=== PATIENT | female | born 1960 | race Caucasian/White ===

== ENCOUNTER 2023-06-20 17:12 | Inpatient (IN) | payer BC, SELFPAY ==
[2023-06-20] VITALS (18 sets, daily range): BP systolic 110–182; BP diastolic 54–76; PULSE 79–101; RESP 17–30; TEMP 36.6–37.1; O2SAT 95–99; BMI 26.6; BMI 58.7
--- NOTE | 2023-06-20 17:34 | ECG_ITS ---
[facility] Test Date: 2023-06-20 Pat Name: KAYLA HERRING Department: Room: - Gender: Female C Java Developer: : [id number] Requested By: Order Number: [id number] Reading MD: PAOLO MAURICE Measurements Intervals [place] Rate: 87 P: 70 NV: 194 QRS: 74 QRSD: 86 T: 66 QT: 360 QTc: 405 Interpretive Statements 1100 Sinus rhythm 9110 normal ECG No previous ECG available for comparison Electronically Signed On 06-21-2023 7:02:24 EDT by PAOLO MAURICE
--- NOTE | 2023-06-20 17:43 | PC.NURSE ---
patient presents to ED because patient states since wednesday last week she started off with a sore throat and congestion. patient states she has had on and off nausea for the past week. today patient woke up with n/v and checked her bs in the morning and it was in the 300's. pt is known diabetic and has an insulin pump with humalog and has given herself multiple boluses of insulin throughout the day. patient states she prob had around 40 units of insulin and last dose of insulin was 2 hours ago and she gave herself 11 units. on arrival to ED patient c/o n/v, fatigue, and congestion. bs- 504 on arrival.
[2023-06-20] MEDS: 0.9 % SODIUM CHLORIDE 1,000 ML 1000 ML IV ×3 (17:45→19:08)
[2023-06-20] MEDS: ONDANSETRON PF 4 MG/2 ML VIAL IV ×2 (17:45→23:45)
[2023-06-20 17:51] LABS: Basophils Absolute Auto 0.1 10^3/uL (0.0-0.1); Basophils Percent Auto 0.6 % (0.2-2.0); Eosinophils Percent Auto 0.2 % (0.9-7.0); Hematocrit 42.9 % (36.0-48.0); Hemoglobin 14.3 g/dL (12.0-16.0); Immature Granulocytes Abs Auto 0.05 10^3/uL (0.00-0.03); Immature Granulocytes Pct Auto 0.4 % (0.0-0.5); Lymphocytes Absolute Auto 1.2 10^3/uL (1.2-3.8); Lymphocytes Percent Auto 9.5 % (20.5-60.0); Mean Corpuscular HGB Conc 33.3 g/dL (29.9-35.2); Mean Corpuscular Hemoglobin 31.3 pg (26.7-34.0); Mean Corpuscular Volume 93.9 fL (81.0-99.0); Mean Platelet Volume 9.7 fL (9.5-13.5); Monocytes Absolute Auto 0.5 10^3/uL (0.3-0.8); Monocytes Percent Auto 3.8 % (1.7-12.0); Neutrophils Absolute Auto 10.7 10^3/uL (1.4-6.5); Neutrophils Percent Auto 85.5 % (43.0-75.0); Platelet Count 295 10^3/uL (150-450); Red Blood Count 4.57 10^6/uL (4.20-5.40); Red Cell Distribution Width 12.1 % (11.0-15.0); White Blood Count 12.5 10^3/uL (4.0-11.0)
--- NOTE | 2023-06-20 17:55 | ED_ITS ---
HPI - General Adult General Chief complaint: Nausea/Vomiting/Diarrhea Stated complaint: ABD PAIN HICH BLOOD SUGAR DIABETIC Time Seen by Provider: 06/20/23 17:26 Source: patient Mode of arrival: walk-in History of Present Illness HPI narrative: 63 year female present with chief complaint of Vomiting with elevated blood sugars at home. Patient states while wearing her insulin pump she's had two bypasses today and give herself forty units continues to have higher than normal readings on her glucometer. Patient denies a known history of DKA in the past. She states she feels weak and dry. She is alert and oriented. Blood pressure is elevated upon arrival. She is not febrile. She denies any known sick contacts. Related Data Home Medications Medication Instructions Recorded Confirmed escitalopram oxalate 20 mg tablet 20 mg PO DAILY 06/20/23 06/20/23 estradiol 10 mcg vaginal tablet 10 mcg vaginal DAILY 06/20/23 06/20/23 insulin lispro 100 unit/mL 1 sliding scale dose subcut DAILY 06/20/23 06/20/23 subcutaneous solution (Humalog U-100 Insulin) insulin pump cart,automated,BT 06/20/23 06/20/23 (Omnipod 5 G6 Pods (Gen 5) subcutaneous cartridge) insulin pump cartridge,automated 06/20/23 06/20/23 dose,BT with controller subcutaneous (Omnipod 5 G6 Intro Kit (Gen 5) subcutaneous cartridge with controller) levothyroxine 100 mcg tablet 100 mcg PO DAILY 06/20/23 06/20/23 (Synthroid) linaclotide 145 mcg capsule 145 mcg PO .QD 06/20/23 06/21/23 (Linzess) metformin 500 mg tablet,extended 500 mg PO BIDWM 06/20/23 06/21/23 release 24 hr pen needle, diabetic 32 gauge x 06/20/23 06/20/23 (BD Mila 2nd Gen Pen Needle) rosuvastatin 5 mg tablet 5 mg PO DAILY 06/20/23 06/20/23 valacyclovir 500 mg tablet 500 mg PO DAILY 06/20/23 06/20/23 cetirizine 10 mg tablet (24Hour 10 mg PO DAILY allergies 06/22/23 06/22/23 Allergy) Previous Rx's Medication Instructions Recorded amoxicillin 875 mg-potassium 1 tab PO BID #13 tabs 06/22/23 clavulanate 125 mg tablet fluconazole 200 mg tablet See Rx Instructions .Route 06/22/23 .COMPLEX #2 tabs magnesium oxide 400 mg PO BID #60 tabs 06/22/23 pantoprazole 40 mg tablet,delayed 40 mg PO DAILY 2 weeks #14 tabs 06/22/23 release Allergies Allergy/AdvReac Type Severity Reaction Status Date / Time psyllium [From Metamucil] AdvReac Unknown Verified 06/20/23 17:21 Sulfa (Sulfonamide AdvReac Unknown Verified 06/20/23 17:21 Antibiotics) Review of Systems ROS Narrative All Systems are negative except as noted/marked.All systems reviewed and otherwise negative [facility] Medical History (Updated 06/22/23 @ 09:49 by Esthela Urbina NP) Back pain with history of spinal surgery ?M54.9 - Dorsalgia, unspecified (ICD-10) ?Z98.890 - Other specified postprocedural states (ICD-10) Depression ?F32.A - Depression, unspecified (ICD-10) Gall stone pancreatitis ?K85.10 - Biliary acute pancreatitis without necrosis or infection (ICD-10) Hyperlipidemia ?E78.5 - Hyperlipidemia, unspecified (ICD-10) Hypothyroidism ?E03.9 - Hypothyroidism, unspecified (ICD-10) Pancreatitis ?K85.90 - Acute pancreatitis without necrosis or infection, unspecified (ICD- 10) UTI (urinary tract infection) ?N39.0 - Urinary tract infection, site not specified (ICD-10) Family History Aunt Family history of cancer Family history of diabetes mellitus Grandfather Family history of myocardial infarction Social History Within the past year, how often did you have a drink containing alcohol: 4 or more times a week Within the past year, how many standard drinks containing alcohol did you have on a typical day: 1 or 2 Within the past year, how often did you have six or more drinks on one occasion: never Total score: 0 Score interpretation: Questions 2 and 3 are 0. It can be assumed that the patient's drinking is below the recommended limits. However, please confirm the accuracy of the patient's alcohol intake over the last few months. Second hand tobacco smoke exposure: No Non-prescribed substance use: denies use Previous occupational history: Nurse Known occupational exposures/hazards: Yes Known occupational exposures/hazards details: Poked with dirty needle at work. Highest level of school completed/degree received: Associate degree: o ccupational, technical, vocational program Do you want help with school or training: No Are you now , , , , never or living with a partner: Little interest or pleasure in doing things: not at all Feeling down, depressed, or hopeless: not at all Feel stressed/tense/nervous/anxious/difficulty sleeping: not at all Due to disability, difficulty making decisions: No Do you think of yourself as: straight/heterosexual Gender Identity: female Exam Narrative Exam Narrative: Nurses note and vital signs reviewed and patient is not hypoxic. General: The patient appears ill and vomiting upon arrival Skin: Warm, dry, no pallor noted. There is no rash noted. Head: Normocephalic, atraumatic Eye: Normal conjunctiva, no drainage, EOMI. PERRL Ears, Nose, Mouth, and Throat: oral mucosa is dry Nares patent. Mouth without vesicles. Ear canals patent. Tm's without Erythema Cardiovascular: Regular Rate and Rhythm Respiratory: Patient is in no distress, no accessory muscle use, lungs are clear to auscultation, no wheezing, rales or rhonchi GI: Normal bowel sounds, no tenderness to palpation, no masses appreciated. No rebound, guarding, or rigidity noted. Musculoskeletal: The patient has no evidence of calf tenderness, no pitting edema, symmetrical pulses noted bilaterally Neurological: A&O x3, normal speech Psychiatric: Cooperative Constitutional Vital Signs, click to edit/add: Last Vital Signs Temp 97.8 F 06/21/23 20:20 Pulse 87 06/22/23 11:40 Resp 22 06/22/23 11:40 BP 116/55 06/22/23 02:39 Pulse Ox 97 06/22/23 00:21 O2 Del Method Room Air 06/21/23 16:00 Course Course Hospital Course: The patient was admitted with DKA after suffering with a URI for about one week and a few days of nausea and vomiting. She was treated with an insulin drip and IV fluids and her gap closed with well controlled blood sugar. The patient denies any further nausea and vomiting and she feels significantly improved. She does note persistent facial tenderness, headache, and congestion consistent with secondary bacterial sinusitis. She is being discharged home in stable condition with prescriptions of Augmentin to complete a 7-day course, Protonix for gastric protection, Diflucan for antibiotic associated candidal vaginitis, and magnesium supplementation twice daily. The patient experienced asymptomatic hypomagnesemia of unclear etiology, but we suspect this is dilutional after receiving large-volume IV fluids. She should resume BS management per her home insulin pump regimen. The patient reports feeling back to her baseline and is requesting to be discharged home. She should follow-up with her PCP within 5 to 7 days and obtain a follow up BMP and magnesium level per her PCP order. She should also follow-up with her aoc director combat plans officer as previously scheduled. Vital Signs Vital signs: Vital Signs Temperature 98.0 F 06/20/23 17:19 Pulse Rate 101 H 06/20/23 17:19 Respiratory Rate 20 06/20/23 17:19 Blood Pressure 182/76 H 06/20/23 17:19 Pulse Oximetry 98 06/20/23 17:19 Oxygen Delivery Method Room Air 06/20/23 17:19 Temperature 97.8 F 06/21/23 20:20 Pulse Rate 87 06/22/23 11:40 Respiratory Rate 22 06/22/23 11:40 Blood Pressure 116/55 06/22/23 02:39 Pulse Oximetry 97 06/22/23 00:21 Oxygen Delivery Method Room Air 06/21/23 16:[address] [facility] Narrative Medical decision making narrative: 63 year female present with chief complaint of Vomiting with elevated blood sugars at home. Patient states while wearing her insulin pump she's had two bypasses today and give herself forty units continues to have higher than normal readings on her glucometer. Patient denies a known history of DKA in the past. She states she feels weak and dry. She is alert and oriented. Blood pressure is elevated upon arrival. She is not febrile. She denies any known sick contacts. Patient presented here with a chief complaint nausea vomiting elevated blood sugars. Patient had not had DKA in the past. Upon arrival, patient was given IV fluids and Zofran. Blood sugar read 504 by our glucometer.Labs including acetone were ordered. Patient has slight amount of ketones as well as an elevated white blood cell count 12.5 , a low sodium of 130, , normal potassium of 4.6 with low CO2 of 14.6 and elevated BUN/creatinine of 24, 1.07 serum glucose of 481 Patient has received IV fluids, 2 L here in emergency room and started on insulin drip. We did reach out to the hospitalist, Dr Keane, who agrees to admit the patient. She'll be admitted to the ICU for fluids and insulin drip. Patient is currently stable. She is made aware of results and agrees with plan of care. She'll be treated here in the hospital for DKA and dehydration. Patient's vital signs are stable she is not currently afebrile. Differential Diagnosis Differential Diagnosis: Hyperglycemia, DKA Medical Records Medical records reviewed: Yes I reviewed the patient's medical records Lab Data Lab results reviewed: Yes I reviewed the patient's lab results Labs: Lab Results 06/20/23 06/20/23 06/20/23 Range/Units 17:20 17:40 18:22 WBC 12.5 H (4.0-11.0) 10^3/uL RBC 4.57 (4.20-5.40) 10^6/uL Hgb 14.3 (12.0-16.0) g/dL Hct 42.9 (36.0-48.0) % MCV 93.9 (81.0-99.0) fL MCH 31.3 (26.7-34.0) pg MCHC 33.3 (29.9-35.2) g/dL RDW 12.1 (11.0-15.0) % Plt Count 295 (150-450) 10^3/uL MPV 9.7 (9.5-13.5) fL Neut % (Auto) 85.5 H (43.0-75.0) % Lymph % (Auto) 9.5 L (20.5-60.0) % [place] % (Auto) 3.8 (1.7-12.0) % Eos % (Auto) 0.2 L (0.9-7.0) % Baso % (Auto) 0.6 (0.2-2.0) % Neut # (Auto) 10.7 H (1.4-6.5) 10^3/uL Lymph # (Auto) 1.2 (1.2-3.8) 10^3/uL [place] # (Auto) 0.5 (0.3-0.8) 10^3/uL Eos # (Auto) 0.0 (0.0-0.7) 10^3/uL Baso # (Auto) 0.1 (0.0-0.1) 10^3/uL Abs Immat Gran (auto) 0.05 H (0.00-0.03) 10^3/uL Imm/Tot Granulo (auto) 0.4 (0.0-0.5) % VBG pH 7.267 L (7.330-7.430) VBG pCO2 34.2 L (40.0-52.0) mmHg Sodium 130 L (136-145) mmol/L Potassium 4.6 (3.5-5.1) mmol/L Chloride 93 L (98-107) mmol/L Carbon Dioxide 14.6 L (21.0-32.0) mmol/L Anion Gap 27.0 BUN 24.0 H (7.0-18.0) mg/dL Creatinine 1.07 H (0.55-1.02) mg/dL Est GFR ( Amer) >60 (>=60) Est GFR (Non-Af Amer) 52 L (>=60) BUN/Creatinine Ratio 22.4 Glucose 481 H (74-106) mg/dL Lactate 2.1 H (0.4-2.0) mmol/L Calcium 9.8 (8.5-10.1) mg/dL Total Bilirubin 0.8 (0.2-1.0) mg/dL AST 17 (15-37) U/L ALT 29 (14-59) U/L Alkaline Phosphatase 99 (46-116) U/L Troponin I High Sens 8.6 (4.0-51.3) pg/mL Total Protein 8.3 H (6.4-8.2) g/dL Albumin 4.4 (3.4-5.0) g/dL Globulin 3.9 g/dL Albumin/Globulin Ratio 1.1 Triglycerides 112 (<=150) mg/dL Cholesterol 199 (<=200) mg/dL LDL Cholesterol, Calc 87.0 mg/dL VLDL Cholesterol 22.4 mg/dL HDL Cholesterol 90 H (40-60) mg/dL Cholesterol/HDL Ratio 2.2 Amylase 32 (25-115) U/L Lipase 43.0 (16.0-77.0) U/L Urine Color Lt. yellow (YELLOW) Urine Clarity Clear (CLEAR) Urine pH 5.5 (5.0-9.0) Ur Specific [place] 1.020 (1.005-1.025) Urine Protein Negative (NEG/TRACE) mg/dL Urine Glucose (UA) >=1000 A (NEGATIVE) mg/dL Urine Ketones >=80 A (NEGATIVE) mg/dL Urine Occult Blood Trace-i (NEGATIVE) Urine Nitrite Negative (NEGATIVE) Urine Bilirubin Negative (NEGATIVE) Urine Urobilinogen 0.2 (0.2-1.0) EU/dL Ur Leukocyte Esterase Negative (NEGATIVE) Urine RBC 0-2 (0-2) #/HPF Urine WBC None seen (NONE SEEN) #/HPF Ur Squamous Epith Cells Few A (NONE/RARE) #/LPF Urine Crystals None seen (None Seen) #/HPF Urine Bacteria None seen (NONE SEEN) #/HPF Urine Casts None seen (NONE SEEN) #/LPF Urine Mucus None seen (NONE SEEN) Ur Culture Indicated? No Acetone, Qual Small A (NEGATIVE) SARS-CoV-2 (PCR) (NEGATIVE) SARS-CoV-2 RNA (KAIT) (NOT DETECTE) Streptococcus Screen POC Glucose 471 H (74-106) mg/dL 06/20/23 06/20/23 Range/Units 19:00 19:03 WBC (4.0-11.0) 10^3/uL RBC (4.20-5.40) 10^6/uL Hgb (12.0-16.0) g/dL Hct (36.0-48.0) % MCV (81.0-99.0) fL MCH (26.7-34.0) pg MCHC (29.9-35.2) g/dL RDW (11.0-15.0) % Plt Count (150-450) 10^3/uL MPV (9.5-13.5) fL Neut % (Auto) (43.0-75.0) % Lymph % (Auto) (20.5-60.0) % [place] % (Auto) (1.7-12.0) % Eos % (Auto) (0.9-7.0) % Baso % (Auto) (0.2-2.0) % Neut # (Auto) (1.4-6.5) 10^3/uL Lymph # (Auto) (1.2-3.8) 10^3/uL [place] # (Auto) (0.3-0.8) 10^3/uL Eos # (Auto) (0.0-0.7) 10^3/uL Baso # (Auto) (0.0-0.1) 10^3/uL Abs Immat Gran (auto) (0.00-0.03) 10^3/uL Imm/Tot Granulo (auto) (0.0-0.5) % VBG pH (7.330-7.430) VBG pCO2 (40.0-52.0) mmHg Sodium (136-145) mmol/L Potassium (3.5-5.1) mmol/L Chloride (98-107) mmol/L Carbon Dioxide (21.0-32.0) mmol/L Anion Gap BUN (7.0-18.0) mg/dL Creatinine (0.55-1.02) mg/dL Est GFR ( Amer) (>=60) Est GFR (Non-Af Amer) (>=60) BUN/Creatinine Ratio Glucose (74-106) mg/dL Lactate (0.4-2.0) mmol/L Calcium (8.5-10.1) mg/dL Total Bilirubin (0.2-1.0) mg/dL AST (15-37) U/L ALT (14-59) U/L Alkaline Phosphatase (46-116) U/L Troponin I High Sens (4.0-51.3) pg/mL Total Protein (6.4-8.2) g/dL Albumin (3.4-5.0) g/dL Globulin g/dL Albumin/Globulin Ratio Triglycerides (<=150) mg/dL Cholesterol (<=200) mg/dL LDL Cholesterol, Calc mg/dL VLDL Cholesterol mg/dL HDL Cholesterol (40-60) mg/dL Cholesterol/HDL Ratio Amylase (25-115) U/L Lipase (16.0-77.0) U/L Urine Color (YELLOW) Urine Clarity (CLEAR) Urine pH (5.0-9.0) Ur Specific [place] (1.005-1.025) Urine Protein (NEG/TRACE) mg/dL Urine Glucose (UA) (NEGATIVE) mg/dL Urine Ketones (NEGATIVE) mg/dL Urine Occult Blood (NEGATIVE) Urine Nitrite (NEGATIVE) Urine Bilirubin (NEGATIVE) Urine Urobilinogen (0.2-1.0) EU/dL Ur Leukocyte Esterase (NEGATIVE) Urine RBC (0-2) #/HPF Urine WBC (NONE SEEN) #/HPF Ur Squamous Epith Cells (NONE/RARE) #/LPF Urine Crystals (None Seen) #/HPF Urine Bacteria (NONE SEEN) #/HPF Urine Casts (NONE SEEN) #/LPF Urine Mucus (NONE SEEN) Ur Culture Indicated? Acetone, Qual (NEGATIVE) SARS-CoV-2 (PCR) Negative (NEGATIVE) SARS-CoV-2 RNA (KAIT) Invalid A (NOT DETECTE) Streptococcus Screen Negative POC Glucose 442 H (74-106) mg/dL ECG Data Interpretation: 1737 Sinus rhythm rate of eighty-sevenBeats per minute.no ectopy no ST elevation or depression, no STEMI Discharge Plan Discharge Chief Complaint: Nausea/Vomiting/Diarrhea Clinical Impression: DKA (diabetic ketoacidosis) Patient Disposition: Admitted As Inpatient Time of Disposition Decision: 18:31 Condition: Good Discharge Date/Time: 06/20/23 19:39
[2023-06-20 17:56] LABS: PCO2 VBG 34.2 mmHg (40.0-52.0); pH VBG 7.267 (7.330-7.430)
[2023-06-20 18:06] LABS: Acetone SMALL (NEGATIVE)
[2023-06-20 18:19] LABS: Alanine Aminotransferase 29 U/L (14-59); Albumin Globulin Ratio 1.1; Albumin Level 4.4 g/dL (3.4-5.0); Alkaline Phosphatase 99 U/L (46-116); Aspartate Amino Transferase 17 U/L (15-37); BUN Creatinine Ratio 22.4; Bilirubin Total 0.8 mg/dL (0.2-1.0); Calcium 9.8 mg/dL (8.5-10.1); Carbon Dioxide 14.6 mmol/L (21.0-32.0); Chloride 93 mmol/L (98-107); Estimated GFR (African America >60 (>=60); Estimated GFR (Non-African Ame 52 (>=60); Globulin 3.9 g/dL; Glucose 481 mg/dL (74-106); Potassium 4.6 mmol/L (3.5-5.1); Sodium 130 mmol/L (136-145); Total Protein 8.3 g/dL (6.4-8.2); Troponin I High Sensitivity 8.6 pg/mL (4.0-51.3)
[2023-06-20 18:19] LABS: Bilirubin Urine NEGATIVE (NEGATIVE); Blood Urine TRACE-I (NEGATIVE); Clarity Urine CLEAR (CLEAR); Color Urine LT. YELLOW (YELLOW); Glucose Urine UA >=1000 mg/dL (NEGATIVE); Ketones Urine >=80 mg/dL (NEGATIVE); Leukocyte Esterase Urine NEGATIVE (NEGATIVE); Nitrite Urine NEGATIVE (NEGATIVE); Protein Urine NEGATIVE (NEG/TRACE); Urobilinogen Urine 0.2 EU/dL (0.2-1.0); pH Urine 5.5 (5.0-9.0)
[2023-06-20 18:21] LABS: Lactate/Lactic Acid 2.1 mmol/L (0.4-2.0)
[2023-06-20] MEDS: INSULIN REGULAR 300 UNITS/3 ML 15 UNIT IV (18:21)
[2023-06-20 18:24] LABS: Glucometer 471 mg/dL (74-106)
[2023-06-20 18:29] LABS: Bacteria Urine NONE SEEN #/HPF (NONE SEEN); Cast Seen? NONE SEEN #/LPF (NONE SEEN); Crystals Seen? None Seen #/HPF (None Seen); Mucus Urine NONE SEEN (NONE SEEN); RBC Urine 0-2 #/HPF (0-2); Squamous Epithelial Cell Urine FEW #/LPF (NONE/RARE); Urine Culture Indicated NO; WBC Urine NONE SEEN #/HPF (NONE SEEN)
[2023-06-20 19:04] LABS: Glucometer 442 mg/dL (74-106)
[2023-06-20] MEDS: INSULIN REGULAR IN 0.9 % NACL 100 UNIT/100 ML PLAST..BAG IV (19:08)
[2023-06-20 19:27] LABS: Internal Control Within Normal Limits; SARS-CoV-2 Ag NEGATIVE (NEGATIVE); Strep A Antigen Screen Negative
[2023-06-20 20:18] LABS: Glucometer 312 mg/dL (74-106)
[2023-06-20 21:19] LABS: Glucometer 213 mg/dL (74-106)
--- NOTE | 2023-06-20 21:30 | W.PM.TELEPN ---
Progress Note: Subjective Subjective Interval history: Chief Complaint: Nausea and vomiting History of Present Illness: This is a very pleasant 63 years old female with past medical history significant for diabetes type 1 for the last few years (after patient sustained gallstone pancreatitis). Patient presents with above complaints. Patient uses insulin pump at home. Patient stating that over the course of the last 5-6 days she has been experiencing nausea and the vomiting. She denies fevers or chills. No diarrhea. No hematemesis or hematochezia. She continues to utilize her insulin pump. Evaluation in the emergency room revealed metabolic acidosis with anion gap. Admitted for further treatment. Exam Narrative Exam Narrative: ROS: 1.General: no fever, chills, not in distress 2.HEENT: no SALEH, no blurry vision, no swallow problems, no nasal congestion, no sore throat 3.Pulmonary: no cough, SOB, wheezes 4.CVS: no CP, no palpitations, no BORDEN, no SOB, no intermittent claudication 5.GI:see above 6.: no renal colic, no hematuria, urinary frequency or urgency 7.Extremities: no edema 8.Neurological: no dizziness, vertigo, double or blurry vision, no no focal weakness, no paresthesia, no swallow or speech problems 9.Musculosceletal: no joint pains, no joint swelling, no back pain 10.Dermatological: no skin rashes, no lesions, no pruritus 11.Hematological: no bleeding, no hx/o clots 12.Endocrinological: no heat/cold intolerance, no hx/o diabetes 13.Psychiatric: no suicidal or homicidal thoughts Physical Exam: Not in distress, pleasant, lucid, cooperative, Head - atraumatic, eyes - pupils equal, round, reactive to light, extra ocular movement intact, MMM Neck - supple, thyroid not enlarged, LN not palpated Lungs - clear to auscultation, no dullness on percussion CVS - heart sounds S1, S2, no additional murmurs gallop, regular rate and rhythm Gastrointestinal?abdomen is soft, non-tender, non-distended, no organomegaly, positive bowel sounds Extremities no clubbing, cyanosis or edema Neurological?cranial nerve II?XII grossly intact, no meningeal signs, no cerebellar signs, no sensory deficit Musculoskeletal - joints, no effusions, ROM preserved Dermatological - the skin dry, warm, no rashes Psychiatric?patient is AAO X3, patient has normal affect Constitutional Vital Signs, click to edit/add: Last Vital Signs Temp 97.9 F 06/20/23 19:53 Pulse 83 06/20/23 19:53 Resp 18 06/20/23 19:53 BP 134/60 06/20/23 19:53 Pulse Ox 98 06/20/23 19:53 O2 Del Method Room Air 06/20/23 19:53 Progress Note: Objective Labs Labs: Short CBC 06/20/23 Range/Units 17:20 WBC 12.5 H (4.0-11.0) 10^3/uL Hgb 14.3 (12.0-16.0) g/dL Hct 42.9 (36.0-48.0) % Plt Count 295 (150-450) 10^3/uL BMP 06/20/23 17:20 Sodium 130 L Potassium 4.6 Chloride 93 L Carbon Dioxide 14.6 L BUN 24.0 H Creatinine 1.07 H Glucose 481 H Calcium 9.8 Liver Function 06/20/23 Range/Units 17:20 Total Bilirubin 0.8 (0.2-1.0) mg/dL AST 17 (15-37) U/L ALT 29 (14-59) U/L Alkaline Phosphatase 99 (46-116) U/L Albumin 4.4 (3.4-5.0) g/dL Urine 06/20/23 Range/Units 17:40 Urine Color Lt. yellow (YELLOW) Urine Clarity Clear (CLEAR) Urine pH 5.5 (5.0-9.0) Ur Specific [place] 1.020 (1.005-1.025) Urine Protein Negative (NEG/TRACE) mg/dL Urine Glucose (UA) >=1000 A (NEGATIVE) mg/dL Progress Note: A&P Assessment and Plan (1) DKA (diabetic ketoacidosis): Assessment and Plan: Going to admit patient to intensive care unit Aggressive fluid resuscitation DKA protocol initiated with insulin drip, frequent monitoring of the electrolytes and blood glucose Hold off pump for no (2) Hypothyroidism: Assessment and Plan: Resume home dose of supplemental levothyroxine (3) Pancreatitis: Assessment and Plan: Patient has a history of gallstone pancreatitis. She stating that she had an additional bout of pancreatitis afterwards as well. I am going to check amylase and lipase. Continue with bowel rest. Symptoms controlled. (4) Depression: Assessment and Plan: Verify and restart home regiment Plan As the provider for the telehealth service, I attest that I introduced myself to the patient, provided my credentials, disclosed by location and determined that based on a review of the patient's chart and discussion with members of the patient's treatment team, telemedicine via real-time, 2 way, and interactive audio and video platform is an appropriate and effective means of providing the service. ?The patient and I mutually agree this visit is appropriate for telemedicine. ?The virtual encounter was taken place from? [place], [place]. ?The encounter took approximately 35 minutes. ?The nurse was present during the entire time and I was able to move the stethoscope in appropriate directions. ?The patient was evaluated at the Hospital ? Portions of this note may be dictated using [employer] voice recognition software. Variances in spelling and vocabulary are possible and unintentional. Not all errors may be caught and/or corrected. Please notify the author if any discrepancies are noted and/or if the meaning of any statement is unclear.? ? Patient verbally consented for treatment via video visit with patient currently located at the [facility] and provider located in [place]. Telemedicine Attestation Telemedicine Attestation I conducted this encounter from [[place]] via secure live, [id number] video conference with the patient, located at [facility] with [[facility]]. Prior to the interview, the risks and benefits of telemedicine were discussed with the patient and verbal consent was obtained.
[2023-06-20] MEDS: POTASSIUM CHLORIDE/D5-0.45NACL 1,000 ML 100 MEQ IV (22:09)
[2023-06-20] MEDS: PANTOPRAZOLE SODIUM 40 MG VIAL IV (22:13)
[2023-06-20 22:20] LABS: Amylase 32 U/L (25-115); Chol HDL Ratio 2.2; Cholesterol 199 mg/dL (<=200); HDL Cholesterol 90 mg/dL (40-60); Triglycerides 112 mg/dL (<=150); VLDL CHOLESTEROL 22.4 mg/dL
[2023-06-20 22:28] LABS: Glucometer 148 mg/dL (74-106)
[2023-06-20 23:19] LABS: Glucometer 128 mg/dL (74-106)
[2023-06-21] VITALS (78 sets, daily range): BP systolic 105–120; BP diastolic 52–82; PULSE 58–93; RESP 13–37; TEMP 36.6–36.8; O2SAT 92–99
[2023-06-21 00:08] LABS: Anion Gap 20.6; Carbon Dioxide 15.5 mmol/L (21.0-32.0); Chloride 103 mmol/L (98-107); Potassium 4.1 mmol/L (3.5-5.1); Sodium 135 mmol/L (136-145)
[2023-06-21 00:09] LABS: BUN Creatinine Ratio 24.4; Calcium 8.5 mg/dL (8.5-10.1); Estimated GFR (African America >60 (>=60); Estimated GFR (Non-African Ame >60 (>=60); Glucose 191 mg/dL (74-106)
[2023-06-21 00:23] LABS: Glucometer 130 mg/dL (74-106)
[2023-06-21 01:34] LABS: Glucometer 118 mg/dL (74-106)
[2023-06-21 02:37] LABS: Glucometer 137 mg/dL (74-106)
[2023-06-21 03:29] LABS: Glucometer 156 mg/dL (74-106)
[2023-06-21 05:01] LABS: Glucometer 210 mg/dL (74-106)
[2023-06-21 05:45] LABS: Basophils Absolute Auto 0.1 10^3/uL (0.0-0.1); Basophils Percent Auto 0.5 % (0.2-2.0); Eosinophils Absolute Auto 0.1 10^3/uL (0.0-0.7); Eosinophils Percent Auto 0.9 % (0.9-7.0); Hematocrit 34.5 % (36.0-48.0); Hemoglobin 11.6 g/dL (12.0-16.0); Immature Granulocytes Abs Auto 0.02 10^3/uL (0.00-0.03); Immature Granulocytes Pct Auto 0.2 % (0.0-0.5); Lymphocytes Absolute Auto 2.6 10^3/uL (1.2-3.8); Mean Corpuscular HGB Conc 33.6 g/dL (29.9-35.2); Mean Corpuscular Hemoglobin 30.9 pg (26.7-34.0); Mean Platelet Volume 9.5 fL (9.5-13.5); Monocytes Absolute Auto 1.3 10^3/uL (0.3-0.8); Monocytes Percent Auto 12.5 % (1.7-12.0); Neutrophils Absolute Auto 6.2 10^3/uL (1.4-6.5); Neutrophils Percent Auto 60.9 % (43.0-75.0); Platelet Count 237 10^3/uL (150-450); Red Blood Count 3.75 10^6/uL (4.20-5.40); Red Cell Distribution Width 12.3 % (11.0-15.0); White Blood Count 10.2 10^3/uL (4.0-11.0)
[2023-06-21 05:51] LABS: Glucometer 258 mg/dL (74-106)
[2023-06-21 06:06] LABS: Magnesium 1.7 mg/dL (1.8-2.4)
[2023-06-21 06:13] LABS: Alanine Aminotransferase 26 U/L (14-59); Albumin Level 3.1 g/dL (3.4-5.0); Alkaline Phosphatase 69 U/L (46-116); Anion Gap 17.2; Aspartate Amino Transferase 19 U/L (15-37); BUN Creatinine Ratio 18.7; Bilirubin Total 0.5 mg/dL (0.2-1.0); Calcium 8.3 mg/dL (8.5-10.1); Carbon Dioxide 18.4 mmol/L (21.0-32.0); Chloride 103 mmol/L (98-107); Estimated GFR (African America >60 (>=60); Estimated GFR (Non-African Ame >60 (>=60); Globulin 3.1 g/dL; Glucose 260 mg/dL (74-106); Potassium 4.6 mmol/L (3.5-5.1); Sodium 134 mmol/L (136-145); Total Protein 6.2 g/dL (6.4-8.2)
--- NOTE | 2023-06-21 07:02 | PC.NURSE ---
Paged Dr. Pope this a.m. regarding blood sugars are increasing with D5 1/2NS and her Mag is low at 1.7.
[2023-06-21 08:01] LABS: Glucometer 341 mg/dL (74-106)
[2023-06-21] MEDS: INSULIN ASPART 300 UNIT/3 ML PEN SUBQ ×3 (08:12→21:32)
--- NOTE | 2023-06-21 08:40 | PM.HP ---
H&P: HPI History of Present Illness Chief complaint: ABD PAIN HIGH BLOOD SUGAR DIABETIC DKA Narrative: patient is a 63-year-old female with past history of type 1 diabetes secondary to gallstone pancreatitis. She has been on an insulin pump for about a year. She felt relatively well until about a week ago where she developed an upper respiratory infection. She seemed to recover for a few days and on Wednesday developed severe fatigue with nausea and vomiting. She reports difficulty controlling her sugars they've been up in the 300s. She uses a DEXCOM to monitor sugars. Ha1c was 8.0. she follows with insurance compliance analyst regularly. This morning she reports some fatigue but notes improvement in her vomiting and nausea. She denies having any diarrhea, chest pain, shortness of breath, or current upper respiratory symptoms such as runny nose and coughing sneezing or fever. Review of Systems ROS Narrative ROS: a complete review of systems were reviewed with patient and are positive as below or listed in History of Chief Complaint. General: no fever, chills, night sweats Head: no headache, trauma, visual changes, nausea or vomiting Skin: no reported rashes, itching or sores Eyes: no blurriness of vision Ears: no reported hearing loss, vertigo, earache, or tinnitus Throat: no sore throat, hoarseness, swelling of neck, or tongue pain Heart: no chest pain Lungs: no shortness of breath or cough GI: no diarrhea but vomiting/nausea Urinary: no urinary urgency, frequency or pain Neuro: no numbness or tingling HEM: no bleeding issues or bruising ENDO: no thyroid problems Psych: no anxiety or depression PFSH PFSH Medical History (Updated 06/21/23 @ 13:38 by Akiko Pope DO) Back pain with history of spinal surgery ?M54.9 - Dorsalgia, unspecified (ICD-10) ?Z98.890 - Other specified postprocedural states (ICD-10) Depression ?F32.A - Depression, unspecified (ICD-10) Gall stone pancreatitis ?K85.10 - Biliary acute pancreatitis without necrosis or infection (ICD-10) Hypothyroidism ?E03.9 - Hypothyroidism, unspecified (ICD-10) Pancreatitis ?K85.90 - Acute pancreatitis without necrosis or infection, unspecified (ICD-10) UTI (urinary tract infection) ?N39.0 - Urinary tract infection, site not specified (ICD-10) Family History Aunt Family history of cancer Family history of diabetes mellitus Grandfather Family history of myocardial infarction Social History Within the past year, how often did you have a drink containing alcohol: 4 or more times a week Within the past year, how many standard drinks containing alcohol did you have on a typical day: 1 or 2 Within the past year, how often did you have six or more drinks on one occasion: never Total score: 0 Score interpretation: Questions 2 and 3 are 0. It can be assumed that the patient's drinking is below the recommended limits. However, please confirm the accuracy of the patient's alcohol intake over the last few months. Second hand tobacco smoke exposure: No Non-prescribed substance use: denies use Previous occupational history: Nurse Known occupational exposures/hazards: Yes Known occupational exposures/hazards details: Poked with dirty needle at work. Highest level of school completed/degree received: Associate degree: occupational, technical, vocational program Do you want help with school or training: No Are you now , , , , never or living with a partner: Little interest or pleasure in doing things: not at all Feeling down, depressed, or hopeless: not at all Feel stressed/tense/nervous/anxious/difficulty sleeping: not at all Due to disability, difficulty making decisions: No Do you think of yourself as: straight/heterosexual Gender Identity: female Meds Home Medications and Allergies Home Medications Medication Instructions Recorded Confirmed Type escitalopram oxalate 20 mg tablet 20 mg PO DAILY 06/20/23 06/20/23 History estradiol 10 mcg vaginal tablet 10 mcg vaginal DAILY 06/20/23 06/20/23 History insulin lispro 100 unit/mL 1 sliding scale dose subcut DAILY 06/20/23 06/20/23 History subcutaneous solution (Humalog U-100 Insulin) insulin pump cart,automated,BT 06/20/23 06/20/23 History (Omnipod 5 G6 Pods (Gen 5) subcutaneous cartridge) insulin pump cartridge,automated 06/20/23 06/20/23 History dose,BT with controller subcutaneous (Omnipod 5 G6 Intro Kit (Gen 5) subcutaneous cartridge with controller) levothyroxine 100 mcg tablet 100 mcg PO DAILY 06/20/23 06/20/23 History (Synthroid) linaclotide 145 mcg capsule 145 mcg PO .QD 06/20/23 06/21/23 History (Linzess) metformin 500 mg tablet,extended 500 mg PO BIDWM 06/20/23 06/21/23 History release 24 hr pen needle, diabetic 32 gauge x 06/20/23 06/20/23 History 5/32 (BD Mila 2nd Gen Pen Needle) rosuvastatin 5 mg tablet 5 mg PO DAILY 06/20/23 06/20/23 History valacyclovir 500 mg tablet 500 mg PO DAILY 06/20/23 06/20/23 History Allergies Allergy/AdvReac Type Severity Reaction Status Date / Time psyllium [From Metamucil] AdvReac Unknown Verified 06/20/23 17:21 Sulfa (Sulfonamide AdvReac Unknown Verified 06/20/23 17:21 Antibiotics) Exam Narrative Exam Narrative: General: Patient is alert, and oriented to person, place and time with normal affect, proper hygiene Skin: no visible rashes, or ulcers Head: atraumatic, acephalic Heart: Normal rate and rhythm, no murmurs/rubs/gallops Lungs: no audible wheezes, crackles and normal breath sounds all lung hu Abdomen: Normal audible bowel sounds, no distension, No palpable masses, no organomegaly, no rebound/guarding/ or rigidity Musculoskeletal: no swelling bilateral lower extremities Vascular: Normal carotid, radial, femoral, posterior tibial, and dorsalis pedis pulses Lymph: no supraclavicular, axillary, or anterior/posterior cervical adenopathy Neuro: CN II-X grossly intact, normal sensation upper and lower extremities Constitutional Vital Signs, click to edit/add: Last Vital Signs Temp 97.8 F 06/21/23 07:30 Pulse 84 06/21/23 08:00 Resp 18 06/21/23 08:00 BP 115/52 06/21/23 08:00 Pulse Ox 92 L 06/21/23 08:00 O2 Del Method Room Air 06/21/23 08:00 Results Labs Labs: Short CBC 06/20/23 06/21/23 Range/Units 17:20 05:24 WBC 12.5 H 10.2 (4.0-11.0) 10^3/uL Hgb 14.3 11.6 L (12.0-16.0) g/dL Hct 42.9 34.5 L (36.0-48.0) % Plt Count 295 237 (150-450) 10^3/uL BMP 06/20/23 06/20/23 06/21/23 17:20 22:12 05:24 Sodium 130 L 135 L 134 L Potassium 4.6 4.1 4.6 Chloride 93 L 103 103 Carbon Dioxide 14.6 L 15.5 L 18.4 L BUN 24.0 H 20.0 H 14.0 Creatinine 1.07 H 0.82 0.75 Glucose 481 H 191 H 260 H Calcium 9.8 8.5 8.3 L Liver Function 06/20/23 06/21/23 Range/Units 17:20 05:24 Total Bilirubin 0.8 0.5 (0.2-1.0) mg/dL AST 17 19 (15-37) U/L ALT 29 26 (14-59) U/L Alkaline Phosphatase 99 69 (46-116) U/L Albumin 4.4 3.1 L (3.4-5.0) g/dL Urine 06/20/23 Range/Units 17:40 Urine Color Lt. yellow (YELLOW) Urine Clarity Clear (CLEAR) Urine pH 5.5 (5.0-9.0) Ur Specific [place] 1.020 (1.005-1.025) Urine Protein Negative (NEG/TRACE) mg/dL Urine Glucose (UA) >=1000 A (NEGATIVE) mg/dL ABG ABG results: 06/20/23 17:20 VBG pH 7.267 L VBG pCO2 34.2 L Assessment and Plan Assessment and Plan (1) DKA (diabetic ketoacidosis): Assessment and Plan: patient was initially started on insulin drip, sugars became less than two hundred and anion gap went from twenty-seven on the 17th so patient's insulin drip was stopped. Was then started on sliding scale insulin. Also was placed on D5 half-normal saline with potassium that was also stopped and placed on LR at a rate of one twenty-five. Holding off on insulin pump for now and getting sliding scale. Patient reports prior to insulin pump was on Lantus and sliding scale coverage at home. Amylase lipase were within normal limits as well as liver enzymes. (2) Hypothyroidism: Assessment and Plan: continue levothyroxine (3) Pancreatitis: Assessment and Plan: no acute pancreatitis normal pancreatic enzymes (4) Depression: Assessment and Plan: continue home medications (5) Hyperlipidemia: Assessment and Plan: continue atorvastatin (6) Hypomagnesemia: Assessment and Plan: replaced with IV magnesium 2 g for some leg cramps, level 1.7 Plan patient is a full code Lovenox for deep vein thrombosis prophylaxis
[2023-06-21] MEDS: LACTATED RINGER'S SOLUTION 1,000 ML 125 ML IV ×2 (08:45→16:59)
[2023-06-21] MEDS: LEVOTHYROXINE SODIUM 100 MCG TABLET PO (08:46)
[2023-06-21] MEDS: ESCITALOPRAM 10 MG TABLET 20 MG PO (08:46)
[2023-06-21] MEDS: VALACYCLOVIR HCL 500 MG TABLET PO (08:46)
[2023-06-21] MEDS: ATORVASTATIN CALCIUM 20 MG TABLET PO (08:46)
[2023-06-21] MEDS: PANTOPRAZOLE SODIUM 40 MG VIAL IV ×2 (08:47→21:29)
[2023-06-21 09:08] LABS: Estimated Average Glucose 186 mg/dL; Glycohemoglobin A1C 8.1 % (4.5-6.2)
[2023-06-21] MEDS: MAGNESIUM SULFATE IN WATER 2 GM/50 ML PREMIX IV (10:48)
[2023-06-21 11:26] LABS: Glucometer 204 mg/dL (74-106)
--- NOTE | 2023-06-21 12:26 | CM.NOTE ---
Rounds made with Dr. Pope. Dr. Pope discussed addition of sliding scale insulin at this time. Also, asked what insulin Jolene has at home in addition to her insulin pump. No plan for discharge today.
[2023-06-21 16:28] LABS: Glucometer 140 mg/dL (74-106)
[2023-06-21 17:28] LABS: Alanine Aminotransferase 21 U/L (14-59); Albumin Globulin Ratio 0.8; Albumin Level 2.9 g/dL (3.4-5.0); Alkaline Phosphatase 67 U/L (46-116); Anion Gap 13.5; Aspartate Amino Transferase 17 U/L (15-37); BUN Creatinine Ratio 12.7; Bilirubin Total 0.5 mg/dL (0.2-1.0); Calcium 8.5 mg/dL (8.5-10.1); Carbon Dioxide 18.3 mmol/L (21.0-32.0); Chloride 105 mmol/L (98-107); Estimated GFR (African America >60 (>=60); Estimated GFR (Non-African Ame >60 (>=60); Globulin 3.5 g/dL; Glucose 161 mg/dL (74-106); Potassium 3.8 mmol/L (3.5-5.1); Sodium 133 mmol/L (136-145); Total Protein 6.4 g/dL (6.4-8.2)
[2023-06-21 18:19] LABS: Glucometer 327 mg/dL (74-106)
[2023-06-21] MEDS: INSULIN ASPART 300 UNIT/3 ML PEN 12 UNIT SUBQ (18:49)
[2023-06-21] MEDS: INSULIN DETEMIR 300 UNIT/3 ML INSULN.PEN 10 UNIT SUBQ (21:30)
[2023-06-22] VITALS (73 sets, daily range): BP systolic 105–116; BP diastolic 55–65; PULSE 58–122; RESP 10–30; O2SAT 97
[2023-06-22] MEDS: LACTATED RINGER'S SOLUTION 1,000 ML 125 ML IV (00:59)
[2023-06-22 02:36] LABS: Glucometer 62 mg/dL (74-106)
[2023-06-22 04:15] LABS: Basophils Absolute Auto 0.1 10^3/uL (0.0-0.1); Basophils Percent Auto 0.8 % (0.2-2.0); Eosinophils Absolute Auto 0.2 10^3/uL (0.0-0.7); Hematocrit 36.1 % (36.0-48.0); Hemoglobin 12.4 g/dL (12.0-16.0); Immature Granulocytes Abs Auto 0.01 10^3/uL (0.00-0.03); Immature Granulocytes Pct Auto 0.2 % (0.0-0.5); Lymphocytes Absolute Auto 2.3 10^3/uL (1.2-3.8); Lymphocytes Percent Auto 34.2 % (20.5-60.0); Mean Corpuscular HGB Conc 34.3 g/dL (29.9-35.2); Mean Corpuscular Hemoglobin 31.2 pg (26.7-34.0); Mean Corpuscular Volume 90.7 fL (81.0-99.0); Mean Platelet Volume 9.1 fL (9.5-13.5); Monocytes Absolute Auto 0.7 10^3/uL (0.3-0.8); Neutrophils Absolute Auto 3.4 10^3/uL (1.4-6.5); Neutrophils Percent Auto 50.8 % (43.0-75.0); Platelet Count 225 10^3/uL (150-450); Red Blood Count 3.98 10^6/uL (4.20-5.40); Red Cell Distribution Width 12.5 % (11.0-15.0); White Blood Count 6.6 10^3/uL (4.0-11.0)
[2023-06-22 04:30] LABS: Alanine Aminotransferase 24 U/L (14-59); Alkaline Phosphatase 64 U/L (46-116); Anion Gap 10.7; Aspartate Amino Transferase 18 U/L (15-37); BUN Creatinine Ratio 13.6; Bilirubin Total 0.3 mg/dL (0.2-1.0); Calcium 8.4 mg/dL (8.5-10.1); Chloride 105 mmol/L (98-107); Estimated GFR (African America >60 (>=60); Estimated GFR (Non-African Ame >60 (>=60); Globulin 3.1 g/dL; Glucose 112 mg/dL (74-106); Magnesium 1.6 mg/dL (1.8-2.4); Potassium 3.7 mmol/L (3.5-5.1); Sodium 138 mmol/L (136-145); Total Protein 6.1 g/dL (6.4-8.2)
[2023-06-22] MEDS: ACETAMINOPHEN 325 MG TABLET 650 MG PO (06:41)
[2023-06-22 07:59] LABS: Glucometer 182 mg/dL (74-106)
[2023-06-22] MEDS: INSULIN ASPART 300 UNIT/3 ML PEN SUBQ ×2 (08:03→11:34)
[2023-06-22] MEDS: ATORVASTATIN CALCIUM 20 MG TABLET PO (09:12)
[2023-06-22] MEDS: VALACYCLOVIR HCL 500 MG TABLET PO (09:12)
[2023-06-22] MEDS: LEVOTHYROXINE SODIUM 100 MCG TABLET PO (09:12)
[2023-06-22] MEDS: ESCITALOPRAM 10 MG TABLET 20 MG PO (09:12)
[2023-06-22 09:17] LABS: Glucometer 271 mg/dL (74-106)
[2023-06-22] MEDS: AMOXICILLIN/POTASSIUM CLAV 1 TAB TABLET PO (09:43)
[2023-06-22] MEDS: MAGNESIUM SULFATE IN WATER 4 GM/100 ML PIGGYBACK IV (09:43)
[2023-06-22] MEDS: CETIRIZINE HCL 10 MG TABLET PO (09:43)
[2023-06-22] MEDS: PANTOPRAZOLE SODIUM 40 MG VIAL IV (09:44)
--- NOTE | 2023-06-22 10:58 | P.DS_ITS ---
patient was seen and examined by me at the time of discharge, labs and notes reviewed. I am in agreement with above findings. DS: Providers Provider Date of admission: 06/20/23 19:39 Primary care physician: AARON CANDELARIO Admitting clinician: Akiko Pope Attending physician on discharge: Akiko Pope Discharging clinician: Esthela Urbina Anticipated date of discharge: 06/22/23 DS: Diagnosis Discharge Diagnosis (1) DKA (diabetic ketoacidosis): (2) Acute sinusitis: (3) Hypomagnesemia: DS: Summary Hospital Course Hospital Course: The patient was admitted with DKA after suffering with a URI for about one week and a few days of nausea and vomiting. She was treated with an insulin drip and IV fluids and her gap closed with well controlled blood sugar. The patient denies any further nausea and vomiting and she feels significantly improved. She does note persistent facial tenderness, headache, and congestion consistent with secondary bacterial sinusitis. She is being discharged home in stable condition with prescriptions of Augmentin to complete a 7-day course, Protonix for gastric protection, Diflucan for antibiotic associated candidal vaginitis, and magnesium supplementation twice daily. The patient experienced asymptomatic hypomagnesemia of unclear etiology, but we suspect this is dilutional after receiving large-volume IV fluids. She should resume BS management per her home insulin pump regimen. The patient reports feeling back to her baseline and is requesting to be discharged home. She should follow-up with her PCP within 5 to 7 days and obtain a follow up BMP and magnesium level per her PCP order. She should also follow-up with her dock pumper as previously scheduled. Status at Discharge Functional status at discharge: independent ambulation Overall status at discharge: patient is back to baseline Time Spent with Patient Time attestation: Total time spent providing and/or coordinating discharge services: Exam Constitutional Vital Signs, click to edit/add: Last Vital Signs Temp 97.8 F 06/21/23 20:20 Pulse 75 06/22/23 09:06 Resp 17 06/22/23 04:10 BP 116/55 06/22/23 02:39 Pulse Ox 97 06/22/23 00:21 O2 Del Method Room Air 06/21/23 16:00 Common normals: no apparent distress, oriented x3 and alert General appearance: cooperative Orientation/consciousness: Yes awake HENMT Common normals: normocephalic, head/scalp atraumatic and hearing grossly normal bilaterally Head and scalp: normocephalic and atraumatic Eye Common normals: PERRL, EOMs intact bilaterally, conjunctivae normal and no scleral icterus General eye: normal appearance of both eyes Conjunctiva: conjunctiva(e) normal Pupil: PERRL Neck & C-Spine Common normals: no JVD Chest Common normals: inspection of chest normal Chest: symmetrical chest wall rise Respiratory Common normals: normal respiratory effort, no use of accessory muscles and clear to auscultation bilaterally Effort & inspection: able to speak in complete sentences Auscultation: clear to auscultation bilaterally Cardio Common normals: no JVD, regular rate, regular rhythm, S1 normal heart sound, S2 normal heart sound, no gallops, no clicks, no rub and peripheral pulses 2+ throughout Rate: regular rate Rhythm: regular rhythm Heart sounds: S1 normal, S2 normal and murmur (HSM 2/6) Peripheral pulses: pulses 2+ throughout GI Common normals: Normal to inspection, nondistended, normoactive bowel sounds present, soft to palpation, non-tender and no hepatosplenomegaly Palpation: soft and no hepatosplenomegaly Bladder/kidney exam: bladder normal to palpation Extremity Common normals: normal to inspection and no calf tenderness General: no clubbing, no cyanosis and no edema Neuro Common normals: oriented x3, CN's II-XII intact bilaterally, moves all extremities, no focal motor deficits and no sensory deficits noted Sensorium/orientation: awake and alert Psych Common normals: mental status grossly normal DS: Data Data Completed and Pending Labs on day of discharge: Labs from last 24 hours 06/22/23 06/22/23 06/22/23 09:15 07:58 04:08 WBC 6.6 RBC 3.98 L Hgb 12.4 Hct 36.1 MCV 90.7 MCH 31.2 MCHC 34.3 RDW 12.5 Plt Count 225 MPV 9.1 L Neut % (Auto) 50.8 Lymph % (Auto) 34.2 [place] % (Auto) 11.0 Eos % (Auto) 3.0 Baso % (Auto) 0.8 Neut # (Auto) 3.4 Lymph # (Auto) 2.3 [place] # (Auto) 0.7 Eos # (Auto) 0.2 Baso # (Auto) 0.1 Abs Immat Gran (auto) 0.01 Imm/Tot Granulo (auto) 0.2 Sodium 138 Potassium 3.7 Chloride 105 Carbon Dioxide 26.0 Anion Gap 10.7 BUN 8.0 Creatinine 0.59 Est GFR ( Amer) >60 Est GFR (Non-Af Amer) >60 BUN/Creatinine Ratio 13.6 Glucose 112 H Calcium 8.4 L Magnesium 1.6 L Total Bilirubin 0.3 AST 18 ALT 24 Alkaline Phosphatase 64 Total Protein 6.1 L Albumin 3.0 L Globulin 3.1 Albumin/Globulin Ratio 1.0 POC Glucose 271 H 182 H 06/22/23 06/21/23 06/21/23 02:35 18:19 16:51 WBC RBC Hgb Hct MCV MCH MCHC RDW Plt Count MPV Neut % (Auto) Lymph % (Auto) [place] % (Auto) Eos % (Auto) Baso % (Auto) Neut # (Auto) Lymph # (Auto) [place] # (Auto) Eos # (Auto) Baso # (Auto) Abs Immat Gran (auto) Imm/Tot Granulo (auto) Sodium 133 L Potassium 3.8 Chloride 105 Carbon Dioxide 18.3 L Anion Gap 13.5 BUN 9.0 Creatinine 0.71 Est GFR ( Amer) >60 Est GFR (Non-Af Amer) >60 BUN/Creatinine Ratio 12.7 Glucose 161 H Calcium 8.5 Magnesium Total Bilirubin 0.5 AST 17 ALT 21 Alkaline Phosphatase 67 Total Protein 6.4 Albumin 2.9 L Globulin 3.5 Albumin/Globulin Ratio 0.8 POC Glucose 62 L 327 H 06/21/23 06/21/23 16:26 11:25 WBC RBC Hgb Hct MCV MCH MCHC RDW Plt Count MPV Neut % (Auto) Lymph % (Auto) [place] % (Auto) Eos % (Auto) Baso % (Auto) Neut # (Auto) Lymph # (Auto) [place] # (Auto) Eos # (Auto) Baso # (Auto) Abs Immat Gran (auto) Imm/Tot Granulo (auto) Sodium Potassium Chloride Carbon Dioxide Anion Gap BUN Creatinine Est GFR ( Amer) Est GFR (Non-Af Amer) BUN/Creatinine Ratio Glucose Calcium Magnesium Total Bilirubin AST ALT Alkaline Phosphatase Total Protein Albumin Globulin Albumin/Globulin Ratio POC Glucose 140 H 204 H Preliminary micro results at discharge 06/20/23 19:27 Group A Streptococcus Screen ([facility]) - Preliminary Throat Discharge Plan Discharge Disposition: Home, Self-Care Condition: Good Discharge Medications: New amoxicillin-pot clavulanate 875-125 mg tablet 1 tab PO BID Qty: 13 0RF Rx Instructions: First dose at bedtime on 06/22/23 fluconazole 200 mg tablet See Rx Instructions .ROUTE .COMPLEX Qty: 2 0RF Rx Instructions: 200 mg orally on Day #4 and 2nd dose of 200 mg after antibiotic is completed pantoprazole 40 mg tablet,delayed release (DR/EC) 40 mg PO DAILY 14 Days Qty: 14 0RF magnesium oxide 400 mg magnesium tablet 400 mg PO BID Qty: 60 0RF Continued escitalopram oxalate 20 mg tablet 20 mg PO DAILY estradiol 10 mcg tablet 10 mcg VAGINAL DAILY insulin lispro [Humalog U-100 Insulin] 100 unit/mL solution 1 sliding scale dose subcut DAILY levothyroxine [Synthroid] 100 mcg tablet 100 mcg PO DAILY (DME) Omnipod 5 G6 Pods (Gen 5) Cartridge SUBCUT (DME) Omnipod 5 G6 Intro Kit (Gen 5) Cartridge SUBCUT Linzess 145 mcg capsule 145 mcg PO .QD metformin 500 mg tablet extended release 24 hr 500 mg PO BIDWM rosuvastatin 5 mg tablet 5 mg PO DAILY (DME) pen needle, diabetic [BD Mila 2nd Gen Pen Needle] 32 gauge x 5/32 needle MISCELLANEOUS valacyclovir 500 mg tablet 500 mg PO DAILY cetirizine [24Hour Allergy] 10 mg tablet 10 mg PO DAILY Activity: increase activity as tolerated Diet: advance to your usual diet Activity Restrictions/Additional Instructions: - Recommend repeat BMP, Magnesium level within one week - defer to PCP Forms: Portal Instructions Follow Up Appointments: - PCP in 5-7 days - Endocrinology as previously scheduled
[2023-06-22 11:02] LABS: Glucometer 248 mg/dL (74-106)
--- NOTE | 2023-06-22 11:37 | CM.NOTE ---
Rounds made with ranulfo Winchester for discharge today. No discharge needs identified.
[2023-06-22] MEDS: FLU VACC QS 23-24(6MS UP)CEL/PF 60 MCG/0.5 ML SYRINGE IM (12:19)
[2023-06-22 15:20] LABS: SARS-CoV-2 NAA INVALID (NOT DETECTE)
--- NOTE | 2023-06-23 14:50 | CM.DCFOLLOWU ---
Person spoke with: Jolene How are you feeling? good- but my sugars were getting really high again. I took my insulin pump off and started giving myself injections. Blood sugar then came back down. I have appt tomorrow but am sure my pump is not functioning correctly. Explained to pt there also is usually 1-800 number on pump or contact number for company to trouble shoot pump. Pt states she already has the new pump and she is waiting until tomorrow when her son comes to set up new pump. How is your pain? No pain Did you understand your discharge instructions? yes Do you have any questions about your discharge instructions? No Were you given any prescriptions at discharge? Yes Were you able to get your prescriptions filled? Yes Do you understand how to take your medications as ordered? Yes Do you have any questions about your follow up appointment and do you plan to keep your follow up appointment? No I am scheduled tomorrow and plan on attending appt Is there anything else that you would like to discuss? The care I received from the nurses was exceptional in the ICU Questions/Comments/Concerns/Other:
== END 2023-06-22 12:45 | disposition home or self-care (01) | DRG 639 ==
LOC: ER 18:37 → ICU 19:52
PROVIDERS: Family Medicine; Physician Assistant; Admitting Provider Internal Medicine; Emergency Provider Emergency Medicine; PCP Nurse Practitioner; Visit Provider Nurse Practitioner
DX: E10.10 Type 1 diabetes mellitus with ketoacidosis without coma (principal); J01.90 Acute sinusitis, unspecified; B96.89 Other specified bacterial agents as the cause of diseases classified elsewhere; R11.2 Nausea with vomiting, unspecified; R53.83 Other fatigue; E83.42 Hypomagnesemia; E03.9 Hypothyroidism, unspecified; E78.5 Hyperlipidemia, unspecified; F32.A Depression, unspecified; Z79.4 Long term (current) use of insulin; Z79.84 Long term (current) use of oral hypoglycemic drugs; Z79.890 Hormone replacement therapy; Z79.899 Other long term (current) drug therapy; Z96.41 Presence of insulin pump (external) (internal); Z88.2 Allergy status to sulfonamides; Z88.8 Allergy status to other drugs, medicaments and biological substances; Z83.3 Family history of diabetes mellitus; Z82.49 Family history of ischemic heart disease and other diseases of the circulatory system; Z80.9 Family history of malignant neoplasm, unspecified
CPT/HCPCS: 36415; 80048; 80053; 80061; 81001; 82009; 82150; 82800; 82948; 83036; 83605; 83690; 83735; 84100; 84484; 85025; 87070; 87635; 87811; 87880; 90674; 93005; 96361; 96365; 96366; 96367; 96375; 96376; 99285; G0008; Q3014

== ENCOUNTER 2024-11-18 19:53 | Emergency (ER) | payer MEDICARE, OTHER, SELFPAY ==
[2024-11-18] VITALS (10 sets, daily range): BP systolic 141–171; BP diastolic 68–88; PULSE 71–79; TEMP 36.8; O2SAT 93–99; BMI 28.7
--- NOTE | 2024-11-18 20:15 | ED.GENADUL1 ---
HPI HPI - General Adult General Chief complaint: Abdominal Pain Stated complaint: ABDOMINAL PAIN Time Seen by Provider: 11/18/24 19:57 Source: patient Mode of arrival: walk-in Limitations: no limitations History of Present Illness HPI narrative: L-spine surgery 11/06/24. No BM afterwards for 10 days. 4 days ago daughter gave her an enema with little results. Went to Urgent care and given Chronulac. she also took Miralax. the next day large volume of diarrhea. The following day again no BM and so she took more Lactulose with resultant diarrhea. Last couple of days not able to eat because of nausea and vomiting. No abdominal pain. She is type 1 diabetic. No fever. Mild light headiness Related Data Home Medications ?Medication ?Instructions ?Recorded ?Confirmed escitalopram oxalate 20 mg tablet 20 mg PO DAILY 06/20/23 11/18/24 estradiol 10 mcg vaginal tablet 10 mcg vaginal DAILY 06/20/23 11/18/24 insulin lispro 100 unit/mL 1 sliding scale dose subcut DAILY 06/20/23 11/18/24 subcutaneous solution (Humalog U-100 Insulin) insulin pump cart,automated,BT 06/20/23 11/18/24 (Omnipod 5 G6 Pods (Gen 5) subcutaneous cartridge) insulin pump cartridge,automated 06/20/23 06/20/23 dose,BT with controller subcutaneous (Omnipod 5 G6 Intro Kit (Gen 5) subcutaneous cartridge with controller) levothyroxine 100 mcg tablet 112 mcg PO DAILY 06/20/23 11/18/24 (Synthroid) linaclotide 145 mcg capsule 145 mcg PO .QD 06/20/23 06/21/23 (Linzess) metformin 500 mg tablet,extended 500 mg PO BID 06/20/23 11/18/24 release 24 hr pen needle, diabetic 32 gauge x 06/20/23 06/20/23 (BD Mila 2nd Gen Pen Needle) rosuvastatin 5 mg tablet 5 mg PO DAILY 06/20/23 11/18/24 valacyclovir 500 mg tablet 500 mg PO DAILY 06/20/23 11/18/24 cetirizine 10 mg tablet (24Hour 10 mg PO DAILY allergies 06/22/23 11/18/24 Allergy) gabapentin 300 mg capsule 300 mg PO Q8H 11/18/24 11/18/24 lactulose 10 gram/15 mL oral PO TID PRN constipation 11/18/24 solution (Constulose) methocarbamol 750 mg tablet 750 mg PO Q8H 11/18/24 11/18/24 ondansetron HCl 4 mg tablet 4 mg PO Q8H 11/18/24 11/18/24 prednisone 10 mg tablet 10 mg PO 11/18/24 sennosides 8.6 mg-docusate sodium 1 tab-cap PO BID 11/18/24 11/18/24 50 mg tablet (2-in-1 Laxative) Previous Rx's ?Medication ?Instructions ?Recorded amoxicillin 875 mg-potassium 1 tab PO BID #13 tabs 06/22/23 clavulanate 125 mg tablet fluconazole 200 mg tablet See Rx Instructions .Route 06/22/23 .COMPLEX #2 tabs magnesium oxide 400 mg PO BID #60 tabs 06/22/23 pantoprazole 40 mg tablet,delayed 40 mg PO DAILY 2 weeks #14 tabs 06/22/23 release Allergies Allergy/AdvReac Type Severity Reaction Status Date / Time psyllium (From Metamucil) AdvReac Unknown Hives Verified 11/18/24 20:02 Sulfa (Sulfonamide AdvReac Unknown Anaphylaxis Verified 11/18/24 20:02 Antibiotics) Opioid HPI Opioid Management Most Recent Opioid Data: Last Pain Scale 3 06/22/23 08:04 06/22/23 Review of Systems ROS Status of ROS 10 or more systems reviewed and unremarkable except as noted in history and below [facility] Medical History (Updated 11/18/24 @ 22:17 by Micah Tomas MD) Hyperlipidemia ?E78.5 - Hyperlipidemia, unspecified (ICD-10) UTI (urinary tract infection) ?N39.0 - Urinary tract infection, site not specified (ICD-10) Gall stone pancreatitis ?K85.10 - Biliary acute pancreatitis without necrosis or infection (ICD-10) Pancreatitis ?K85.90 - Acute pancreatitis without necrosis or infection, unspecified (ICD-10) Back pain with history of spinal surgery ?M54.9 - Dorsalgia, unspecified (ICD-10) ?Z98.890 - Other specified postprocedural states (ICD-10) Depression ?F32.A - Depression, unspecified (ICD-10) Hypothyroidism ?E03.9 - Hypothyroidism, unspecified (ICD-10) Family History Aunt Family history of cancer Family history of diabetes mellitus Grandfather Family history of myocardial infarction Social History Within the past year, how often did you have a drink containing alcohol: 4 or more times a week Within the past year, how many standard drinks containing alcohol did you have on a typical day: 1 or 2 Within the past year, how often did you have six or more drinks on one occasion: never Total score: 0 Score interpretation: Questions 2 and 3 are 0. It can be assumed that the patient's drinking is below the recommended limits. However, please confirm the accuracy of the patient's alcohol intake over the last few months. Second hand tobacco smoke exposure: No Non-prescribed substance use: denies use Previous occupational history: Nurse Known occupational exposures/hazards: Yes Known occupational exposures/hazards details: Poked with dirty needle at work. Highest level of school completed/degree received: Associate degree: occupational, technical, vocational program Do you want help with school or training: No Are you now , , , , never or living with a partner: Little interest or pleasure in doing things: not at all Feeling down, depressed, or hopeless: not at all Feel stressed/tense/nervous/anxious/difficulty sleeping: not at all Due to disability, difficulty making decisions: No Do you think of yourself as: straight/heterosexual Gender Identity: female Exam Constitutional Vital Signs, click to edit/add: Last Vital Signs Temp 98.2 F 11/18/24 19:57 Pulse 71 11/18/24 22:05 Resp 19 11/18/24 22:05 BP 171/88 H 11/18/24 22:05 Pulse Ox 98 11/18/24 22:05 O2 Del Method Room Air 11/18/24 19:57 Common normals: no apparent distress, average body habitus, oriented x3, no limitations, healthy appearing, alert and well nourished [facility] Common normals: normocephalic and head/scalp atraumatic Eye Common normals: EOMs intact bilaterally Respiratory Common normals: normal respiratory effort, no retractions, no use of accessory muscles and clear to auscultation bilaterally Cardio Common normals: regular rate, regular rhythm, S1 normal heart sound and S2 normal heart sound GI Common normals: Normal to inspection, nondistended, normoactive bowel sounds present, soft to palpation and non-tender Extremity Common normals: normal to inspection and full ROM Neuro Common normals: oriented x3, CN's II-XII intact bilaterally, moves all extremities and no focal motor deficits Psych Appearance: grossly normal Course Vital Signs Vital signs: Vital Signs Temperature 98.2 F 11/18/24 19:57 Pulse Rate 79 11/18/24 19:57 Respiratory Rate 18 11/18/24 19:57 Blood Pressure 151/77 H 11/18/24 19:57 Pulse Oximetry 98 11/18/24 19:57 Oxygen Delivery Method Room Air 11/18/24 19:57 Temperature 98.2 F 11/18/24 19:57 Pulse Rate 71 11/18/24 22:05 Respiratory Rate 19 11/18/24 22:05 Blood Pressure 171/88 H 11/18/24 22:05 Pulse Oximetry 98 11/18/24 22:05 Oxygen Delivery Method Room Air 11/18/24 19:57 Medical Decision Making MDM Narrative Medical decision making narrative: xray of the abdomen returns with findings of Nonobstructive bowel gas pattern. Mild constipation patient initially had constipation that she treated successfully with Lactulose and miralax. Developed nausea and vomiting over the past couple of days. abdomen feels bloated but is nontender and xray unremarkable. Labs acceptable. She is type 1 IDDM. labs without any evidence of DKA. Patient feeling better after hydration and zofran. UA appears to be a contaminated specimen. Urine cx ordered. UA not treated. Patient discharged home with zofran. she denies any urinary symptoms discharged home in improved condition Lab Data Labs: Lab Results 11/18/24 11/18/24 Range/Units 20:00 20:35 WBC 10.3 (4.0-11.0) 10^3/uL RBC 4.71 (4.20-5.40) 10^6/uL Hgb 14.7 (12.0-16.0) g/dL Hct 42.8 (36.0-48.0) % MCV 90.9 (81.0-99.0) fL MCH 31.2 (26.7-34.0) pg MCHC 34.3 (29.9-35.2) g/dL RDW 12.4 (11.0-15.0) % Plt Count 468 H (150-450) 10^3/uL MPV 8.8 L (9.5-13.5) fL Neut % (Auto) 80.8 H (43.0-75.0) % Lymph % (Auto) 12.1 L (20.5-60.0) % [place] % (Auto) 6.2 (1.7-12.0) % Eos % (Auto) 0.1 L (0.9-7.0) % Baso % (Auto) 0.4 (0.2-2.0) % Neut # (Auto) 8.3 H (1.4-6.5) 10^3/uL Lymph # (Auto) 1.3 (1.2-3.8) 10^3/uL [place] # (Auto) 0.6 (0.3-0.8) 10^3/uL Eos # (Auto) 0.0 (0.0-0.7) 10^3/uL Baso # (Auto) 0.0 (0.0-0.1) 10^3/uL Abs Immat Gran (auto) 0.04 H (0.00-0.03) 10^3/uL Imm/Tot Granulo (auto) 0.4 (0.0-0.5) % Sodium 137 (136-145) mmol/L Potassium 4.4 (3.5-5.1) mmol/L Chloride 98 (98-107) mmol/L Carbon Dioxide 29.2 (21.0-32.0) mmol/L Anion Gap 14.2 BUN 12.0 (7.0-18.0) mg/dL Creatinine 0.96 (0.55-1.02) mg/dL Est GFR ( Amer) >60 (>=60 mL/min/1.73m^2) Est GFR (Non-Af Amer) 59 L (>=60 mL/min/1.73m^2) BUN/Creatinine Ratio 12.5 Glucose 256 H (74-106) mg/dL Lactate 1.3 (0.4-2.0) mmol/L Calcium 9.5 (8.5-10.1) mg/dL Total Bilirubin 0.4 (0.2-1.0) mg/dL AST 12 L (15-37) U/L ALT 20 (14-59) U/L Alkaline Phosphatase 98 (46-116) U/L Troponin I High Sens 14.6 (4.0-51.3) pg/mL Total Protein 7.8 (6.4-8.2) g/dL Albumin 3.7 (3.4-5.0) g/dL Globulin 4.1 g/dL Albumin/Globulin Ratio 0.9 Lipase 74.0 (16.0-77.0) U/L Urine Color Yellow (YELLOW) Urine Clarity Sl cloudy (CLEAR) Urine pH 6.0 (5.0-9.0) Ur Specific [place] 1.020 (1.005-1.025) Urine Protein Trace (NEG/TRACE) mg/dL Urine Glucose (UA) >=1000 A (NEGATIVE) mg/dL Urine Ketones Trace A (NEGATIVE) mg/dL Urine Occult Blood Trace-i (NEGATIVE) Urine Nitrite Negative (NEGATIVE) Urine Bilirubin Negative (NEGATIVE) Urine Urobilinogen 1.0 (0.2-1.0) EU/dL Ur Leukocyte Esterase Small A (NEGATIVE) Urine RBC 0-2 (0-2) #/HPF Urine WBC >100 A (NONE SEEN) #/HPF Ur Squamous Epith Cells Moderate A (NONE/RARE) #/LPF Urine Crystals Seen A (None Seen) #/HPF Calcium Oxalate Crystal Few Urine Bacteria Moderate A (NONE SEEN) #/HPF Urine Casts None seen (NONE SEEN) #/LPF Urine Mucus None seen (NONE SEEN) [place] [place] Qual Negative (NEGATIVE) Discharge Plan Discharge Chief Complaint: Abdominal Pain Clinical Impression: Nausea & vomiting Patient Disposition: Home, Self-Care Prescriptions / Home Meds: No Action methocarbamol 750 mg tablet 750 mg PO Q8H gabapentin 300 mg capsule 300 mg PO Q8H lactulose [Constulose] 10 gram/15 mL solution PO TID PRN (Reason: constipation) ondansetron HCl 4 mg tablet 4 mg PO Q8H prednisone 10 mg tablet 10 mg PO sennosides-docusate sodium [2-in-1 Laxative] 8.6-50 mg tablet 1 tab-cap PO BID escitalopram oxalate 20 mg tablet 20 mg PO DAILY estradiol 10 mcg tablet 10 mcg VAGINAL DAILY insulin lispro [Humalog U-100 Insulin] 100 unit/mL solution 1 sliding scale dose subcut DAILY levothyroxine [Synthroid] 100 mcg tablet 112 mcg PO DAILY (DME) Omnipod 5 G6 Pods (Gen 5) Cartridge SUBCUT (DME) Omnipod 5 G6 Intro Kit (Gen 5) Cartridge SUBCUT Linzess 145 mcg capsule 145 mcg PO .QD metformin 500 mg tablet extended release 24 hr 500 mg PO BID rosuvastatin 5 mg tablet 5 mg PO DAILY (DME) pen needle, diabetic [BD Mila 2nd Gen Pen Needle] 32 gauge x 5/32 needle MISCELLANEOUS valacyclovir 500 mg tablet 500 mg PO DAILY cetirizine [24Hour Allergy] 10 mg tablet 10 mg PO DAILY amoxicillin-pot clavulanate 875-125 mg tablet 1 tab PO BID Qty: 13 0RF Rx Instructions: First dose at bedtime on 06/22/23 fluconazole 200 mg tablet See Rx Instructions .ROUTE .COMPLEX Qty: 2 0RF Rx Instructions: 200 mg orally on Day #4 and 2nd dose of 200 mg after antibiotic is completed pantoprazole 40 mg tablet,delayed release (DR/EC) 40 mg PO DAILY 14 Days Qty: 14 0RF magnesium oxide 400 mg magnesium tablet 400 mg PO BID Qty: 60 0RF Print Language: [place] Instructions: Acute Nausea and Vomiting (ED) Referrals: AARON CANDELARIO [Primary Care Provider] - 1 week
[2024-11-18 20:29] LABS: Basophils Percent Auto 0.4 % (0.2-2.0); Eosinophils Percent Auto 0.1 % (0.9-7.0); Hematocrit 42.8 % (36.0-48.0); Hemoglobin 14.7 g/dL (12.0-16.0); Immature Granulocytes Abs Auto 0.04 10^3/uL (0.00-0.03); Immature Granulocytes Pct Auto 0.4 % (0.0-0.5); Lymphocytes Absolute Auto 1.3 10^3/uL (1.2-3.8); Lymphocytes Percent Auto 12.1 % (20.5-60.0); Mean Corpuscular HGB Conc 34.3 g/dL (29.9-35.2); Mean Corpuscular Hemoglobin 31.2 pg (26.7-34.0); Mean Corpuscular Volume 90.9 fL (81.0-99.0); Mean Platelet Volume 8.8 fL (9.5-13.5); Monocytes Absolute Auto 0.6 10^3/uL (0.3-0.8); Monocytes Percent Auto 6.2 % (1.7-12.0); Neutrophils Absolute Auto 8.3 10^3/uL (1.4-6.5); Neutrophils Percent Auto 80.8 % (43.0-75.0); Platelet Count 468 10^3/uL (150-450); Red Blood Count 4.71 10^6/uL (4.20-5.40); Red Cell Distribution Width 12.4 % (11.0-15.0); White Blood Count 10.3 10^3/uL (4.0-11.0)
[2024-11-18] MEDS: 0.9 % SODIUM CHLORIDE 1,000 ML 999 ML IV (20:33)
[2024-11-18] MEDS: ONDANSETRON PF 4 MG/2 ML VIAL IV (20:33)
[2024-11-18 20:37] LABS: Acetone NEGATIVE (NEGATIVE)
[2024-11-18 20:42] LABS: Bilirubin Urine NEGATIVE (NEGATIVE); Blood Urine TRACE-I (NEGATIVE); Clarity Urine SL CLOUDY (CLEAR); Color Urine YELLOW (YELLOW); Glucose Urine UA >=1000 mg/dL (NEGATIVE); Ketones Urine TRACE mg/dL (NEGATIVE); Leukocyte Esterase Urine SMALL (NEGATIVE); Nitrite Urine NEGATIVE (NEGATIVE); Protein Urine TRACE mg/dL (NEG/TRACE)
[2024-11-18 20:44] LABS: Alanine Aminotransferase 20 U/L (14-59); Albumin Globulin Ratio 0.9; Albumin Level 3.7 g/dL (3.4-5.0); Alkaline Phosphatase 98 U/L (46-116); Anion Gap 14.2; Aspartate Amino Transferase 12 U/L (15-37); BUN Creatinine Ratio 12.5; Bilirubin Total 0.4 mg/dL (0.2-1.0); Calcium 9.5 mg/dL (8.5-10.1); Carbon Dioxide 29.2 mmol/L (21.0-32.0); Chloride 98 mmol/L (98-107); Estimated GFR (African America >60 (>=60 mL/min/1.73m^2); Estimated GFR (Non-African Ame 59 (>=60 mL/min/1.73m^2); Globulin 4.1 g/dL; Glucose 256 mg/dL (74-106); Lactate/Lactic Acid 1.3 mmol/L (0.4-2.0); Potassium 4.4 mmol/L (3.5-5.1); Sodium 137 mmol/L (136-145); Total Protein 7.8 g/dL (6.4-8.2); Troponin I High Sensitivity 14.6 pg/mL (4.0-51.3)
[2024-11-18 20:55] LABS: Bacteria Urine MODERATE #/HPF (NONE SEEN); Calcium Oxalate Crystals Urine FEW; Cast Seen? NONE SEEN #/LPF (NONE SEEN); Crystals Seen? Seen #/HPF (None Seen); Mucus Urine NONE SEEN (NONE SEEN); RBC Urine 0-2 #/HPF (0-2); Squamous Epithelial Cell Urine MODERATE #/LPF (NONE/RARE); Urine Culture Indicated YES-FRMC; WBC Urine >100 #/HPF (NONE SEEN)
[2024-11-18] MEDS: ONDANSETRON 4 MG RAPDIS TABLET SL (22:29)
--- NOTE | 2024-11-18 22:36 | PC.NURSE ---
i gave this patient verbal and written discharge orders along with 1 Rx, and this patient voices yes to understanding these. at time of discharge this patient voices no concerns and shows no signs of distress
== END 2024-11-18 22:37 | disposition home or self-care (01) ==
PROVIDERS: Emergency Provider Internal Medicine; PCP Nurse Practitioner
DX: R11.2 Nausea with vomiting, unspecified (principal); E10.9 Type 1 diabetes mellitus without complications; Z79.4 Long term (current) use of insulin; Z96.41 Presence of insulin pump (external) (internal); Z79.84 Long term (current) use of oral hypoglycemic drugs; R10.9 Unspecified abdominal pain; Z98.890 Other specified postprocedural states
CPT/HCPCS: 36415; 74019; 80053; 81001; 82009; 83605; 83690; 84484; 85025; 87086; 96361; 96374; 99285; J2405; Q0162